=== PATIENT | female | born 1960 | race African-American/Black ===

== ENCOUNTER 2025-03-07 05:27 | Emergency (ER) | payer BC ==
[~2025-03-07] VITALS: Ht 170.2 cm; Wt 97.5 kg
[2025-03-07] MEDS ORDERED: ACETAMINOPHEN ES 500 MG TABLET ONE (05:48)
[2025-03-07] MEDS: ACETAMINOPHEN ES 500 MG TABLET PO ONE (05:57)
[2025-03-07] MEDS ORDERED: PRED20TA PO (06:19)
[2025-03-07] MEDS ORDERED: AZIT250T13 PO (06:19)
[2025-03-07] MEDS ORDERED: AMOX500T2 PO (06:19)
[2025-03-07 06:36] VITALS: BP 133/79; TEMP 98; O2SAT 96
== END 2025-03-07 06:39 | disposition home or self-care (01) ==
LOC: ER 05:36
DX: J18.9 Pneumonia, unspecified organism (principal); R07.89 Other chest pain; Z79.52 Long term (current) use of systemic steroids; Z20.822 Contact with and (suspected) exposure to COVID-19
CPT/HCPCS: 71045-TC